=== PATIENT | male | born 1950 | race Caucasian/White ===

== ENCOUNTER 2024-07-23 19:44 | Emergency (ER) | payer MEDICARE, MEDICAID ==
[~2024-07-23] VITALS: Ht 167.6 cm; Wt 84.1 kg
[~2024-07-23 19:44] MED LIST: ADALAT CC60 MG PO; APRESOLINE50 MG PO; ATIVAN0.5 MG PO; BENZTROPINE2 MG PO; BUMEX 1MG TA1 MG/TA1 PO; CARDURA 1MG1 MG PO; CATAPRES0.2 MG PO; COGENTIN 1MG1 MG/TAB PO; CORDARONE200 MG/TAB PO; DEPAKENE; DIOVAN320 MG PO; EXELON9.5 MG/24 TD; FLOMAX 0.40.4 MG/CAP PO; HALDOL10 MG PO; HYTRIN 2MG CAPSU2 MG PO; K-DUR20 MEQ PO; LOPRESSOR 225 MG/TAB PO; LOPRESSOR 550 MG/TAB PO; MACROBID 1100 MG/CAP PO; NEURONTIN100 MG/CAP PO; NORVASC 10MG10 MG PO; RISPERDAL 0.5M0.5 MG PO; VITAMIN D31000 IU PO; ZOLOFT 100MG100 MG PO
[2024-07-23 21:21] LABS: COLLECTION METHOD CLEAN CATCH
[2024-07-23 21:24] LABS: URINE APPEARANCE CLEAR (CLEAR/HAZY); URINE BLOOD TRACE (NEGATIVE); URINE COLOR YELLOW (YELLOW); URINE GLUCOSE NEGATIVE (NEGATIVE); URINE KETONE NEGATIVE (NEGATIVE); URINE NITRATE NEGATIVE (NEGATIVE); URINE PROTEIN(semi-quant) 2+ (NEGATIVE); URINE UROBILINOGEN 0.2 E.U/dL (0.2-1.0)
[2024-07-23 21:29] LABS: TRICYCLIC ANTIDEPRESS URINE NEGATIVE (NEGATIVE)
[2024-07-23] MEDS ORDERED: OLANZapine 5 MG,Water For Injection,Sterile 1 ML IM ONE ×2 (21:45→22:30)
[2024-07-24 00:23] LABS: ALANINE AMINOTRANSFERASE 20 U/L (0-55); ALBUMIN 4.4 g/dL (3.4-4.8); ALKALINE PHOSPHATASE 90 U/L (40-150); ANION GAP 12 mmol/L (7-16); AST,SGOT 22 U/L (5-34); BILIRUBIN,TOTAL 0.5 mg/dL (0.2-1.2); BLOOD UREA NITROGEN 19 mg/dL (8-26); CALCIUM 9.6 mg/dL (8.4-10.2); CHLORIDE 96 mEq/L (98-107); CREATININE, serum 1.35 mg/dL (0.72-1.25); GLUCOSE 105 mg/dL (70-99); POTASSIUM 3.6 mEq/L (3.5-4.5); SODIUM 131 mEq/L (136-145); TOTAL PROTEIN 7.8 g/dl (6.2-8.1)
[2024-07-24 00:24] LABS: ALCOHOL(ethanol),MEDICAL < 10 mg/dL (0-10); SALICYLATE < 5.0 mg/dL (15.0-30.0)
[2024-07-24 00:38] LABS: BASO % 0.5 % (0.0-2.0); EOS # 0.1 K/mm3 (0.0-0.7); EOS % 0.6 % (0.0-4.0); GRAN # 6.9 K/mm3 (1.4-6.5); GRAN % 84.6 % (42.2-75.2); HEMOGLOBIN 12.7 g/dl (13.5-18.0); LYMPH # 0.5 K/mm3 (1.2-3.4); LYMPH % 6.5 % (20.0-51.0); MEAN CELL VOLUME 90 fl (80.0-100.0); MEAN CORPUSCULAR HEMOGLOBIN 31 pg (27-31); MEAN CORPUSCULAR HGB CONC 35 g/dl (33.0-37.0); MONO # 0.6 K/mm3 (0.1-0.6); MONO % 6.9 % (1.7-9.3); PLATELET COUNT 213 K/mm3 (130-400); RED BLOOD COUNT 4.09 M/mm3 (4.20-5.60); REDCELL DISTRIBUTION WIDTH-CV 14.4 % (11.5-14.5)
[2024-07-24 00:43] LABS: HEMATOCRIT 36.6 % (42.0-52.0)
[2024-07-24 03:24] VITALS: TEMP 97
[2024-07-24] MEDS ORDERED: ARTIFICIAL TEAR15 M7 OP (06:00)
[2024-07-24] MEDS ORDERED: CRANBERRY450 MG (06:01)
[2024-07-24] MEDS ORDERED: DESYREL 100MG100 MG PO (06:04)
[2024-07-24] MEDS ORDERED: TYLENOL 500MG500 MG PO (06:05)
[2024-07-24] MEDS ORDERED: EUCERIN1 CRE TOP (06:10)
[2024-07-24] MEDS ORDERED: GAS RELIEF 8080 MG PO (06:12)
[2024-07-24] MEDS ORDERED: APRESOLINE 25MG25 MG PO (06:17)
[2024-07-24] MEDS ORDERED: ATARAX 10MG10 MG/TAB PO (06:18)
[2024-07-24] MEDS ORDERED: NIZORAL CREAM15 GM TP (06:19)
[2024-07-24] MEDS ORDERED: MIRALAX PA17 GM/Dose PO (06:20)
[2024-07-24] MEDS ORDERED: RISPERDAL 1M1 MG/TAB (06:21)
[2024-07-24] MEDS ORDERED: SENNA-LAX8.6 MG PO (06:22)
[2024-07-24] MEDS ORDERED: TUMS500 MG (06:23)
[2024-07-24] MEDS ORDERED: OLANZapine 5 MG Orally-Disinteg TAB PO ONE (07:45)
--- NOTE | 2024-07-24 08:50 | NUR ---
SW received call from RN stating that patient has been cleared for discharge to return to [facility]. SW called to request transport and was told that they would "check with nurse to see what she wants to do." SW informed that patient is cleared for return. SW returned call to [facility] later due to no return call from nurse. SW was told that transport would arrive within 30 minutes (approximately 0910) to [facility] patient. ED notified of projected transport time.
[2024-07-24] MEDS ORDERED: ZYPREXA ZYDIS5 MG PO (08:56)
[2024-07-24 09:59] VITALS: BP 168/98; PULSE 89
== END 2024-07-24 10:02 | disposition home or self-care (01) ==
LOC: COL.ER 19:44
PROVIDERS: Emergency Medicine
DX: F20.0 Paranoid schizophrenia (principal)
CPT/HCPCS: J2359